=== PATIENT | male | born 1940 | race Caucasian/White ===

== ENCOUNTER 2023-04-19 09:27 | Inpatient (IN) | payer OTHER ==
[~2023-04-19] VITALS: Ht 172.7 cm; Wt 80.3 kg
[2023-04-19] MEDS ORDERED: TRAZODONE HCL100 MG PO (09:51)
[2023-04-19] MEDS ORDERED: BUMETANIDE0.5 MG PO (09:53)
[2023-04-19] MEDS ORDERED: MYRBETRIQ50 MG PO (09:54)
[2023-04-19] MEDS ORDERED: ARICEPT10 MG PO (09:54)
[2023-04-19] MEDS ORDERED: FINASTERIDE5 MG PO (09:55)
[2023-04-19] MEDS ORDERED: SEROQUEL25 MG PO (09:56)
[2023-04-19] MEDS ORDERED: DULCOLAX STOOL100 M1 PO (09:57)
[2023-04-19 10:07] LABS: BASOPHILS 0.3 % (0-2); HEMATOCRIT 35.6 % (35.0-50.0); HEMOGLOBIN 12.2 g/dL (12.0-18.0); MCH 32.2 (27-36); MCHC 34.2 g/dl (30-36); MCV 94.2 fl (81-99); NEUTROPHILS 90.7 % (39-80); PLATELET COUNT 312 K/uL (140-440); RBC 3.78 M/ul (4.3-5.7); RDW 13.2 (10.5-15.0)
[2023-04-19 10:28] LABS: LACTIC ACID, BLOOD 1.5 mmol/L (0.4-2.0)
[2023-04-19 10:31] LABS: ALBUMIN 2.7 g/dL (3.4-5.0); ALBUMIN/GLOBULIN RATIO 0.63 (1.1-2.4); ANION GAP 14.8 (7-21); BILIRUBIN, TOTAL 0.7 ng/dL (0.2-1.0); BUN/CREATININE RATIO 12.5 (6.0-28.6); CALCIUM 8.6 mg/dL (8.5-10.1); CREATININE, SERUM 1.04 mg/dL (0.70-1.30); POTASSIUM 3.8 mmol/L (3.5-5.1)
[2023-04-19 10:35] LABS: INFLUENZA B NAA NEGATIVE (NEGATIVE); RESPIRATORY SYNCYTIAL VIR NAA NEGATIVE (NEGATIVE)
[2023-04-19 10:58] LABS: BASE EXCESS, BLOOD GAS 2.2 mmol/L (-2-2); HCO3, BLOOD GAS 25.9 mmol/L (22-26); O2 SATURATION, BLOOD GAS 97.9 % (95.0-100.0); OXYGEN RECEIVED, BLOOD GAS 8L; PCO2, BLOOD GAS 37.1 mmHg (35-45); PH, BLOOD GAS 7.45 (7.35-7.45); PO2, BLOOD GAS 83 mmHg (80-100)
[2023-04-19 12:36] LABS: BILIRUBIN, URINE NEGATIVE (negative); BLOOD/HGB, URINE SMALL (Negative); KETONE, URINE NEGATIVE (Negative); LEUK ESTERASE, URINE NEGATIVE (negative); NITRITE, URINE NEGATIVE (negative)
[2023-04-19 12:46] LABS: BACTERIA, URINE 1+ /hpf (negative); CRYSTALS, URINE NONE SEEN (0-1+); EPITHELIAL CELLS, URINE SQUAMOUS 1+ /lpf (0-1+); WHITE BLOOD CELLS, URINE 0-1 /HPF (0-5)
[2023-04-19 12:47] LABS: COLLECTION TYPE, URINE VOID; REFLEX CULTURE, URINE No (No)
[2023-04-19 13:48] VITALS: BP 127/53
--- NOTE | 2023-04-19 15:14 | NUR ---
REVIEWED PATIENT'S HOME MEDICATIONS WITH PATIENT'S FAMILY, TO THEIR SATISFACTION. PATIENT IS ON 3L VIA NC. 1300 IV LASIX HELD, PER DR. MORALES. IV KCL IS INFUSING FOR 4 HOURS. WARM BLANKETS PROVIDED.
[2023-04-19] MEDS ORDERED: VITAMIN D325 MC2 PO (16:10)
[2023-04-19] MEDS ORDERED: METAMUCIL POWD575 GM PO (16:13)
--- NOTE | 2023-04-19 16:14 | NUR ---
MED REC COMPLETE
--- NOTE | 2023-04-19 18:03 | NUR ---
PT SITTING UP IN BED IS NOT CURRENTLY EATING DINNER, BUT DOES NOT WANT HIS TRAY REMOVED FROM HIS ROOM. FAMILY IS AT BEDSIDE. NO C/O'S AT THIS TIME.
[2023-04-19 18:30] VITALS: BP 156/78
--- NOTE | 2023-04-19 19:00 | NUR ---
BEDSIDE REPORT RECEIVED FROM OFFGOING RNTANYA. PT RESTING IN BED WITH FAMILY AT BEDSIDE. NEEDS DENIED AT THIS TIME.
--- NOTE | 2023-04-19 20:15 | NUR ---
FOOD PRODUCTION MACHINE OPERATOR TO ROOM FOR IV PUMP ALARMING. PT REPORTS HAVING PASSED STOOL. ATTENDS CHECKED, CHANGED FOR URINE. NO BM PRESENT. PT REPOSITIONED IN BED. WARM BLANKET PROVIDED. FAMILY REMAINS AT BEDSIDE. FURTHER NEEDS DENIED AT THIS TIME. CALL LIGHT IN REACH.
[2023-04-19 21:08] VITALS: BP 126/55
--- NOTE | 2023-04-19 21:10 | NUR ---
PT ASSESSMENT COMPLETE. PT RESTING IN BED WITH FAMILY AT BEDSIDE. PT ORIENTED TO SELF ONLY. VERY HARD OF HEARING. PT'S GRANDAUGREGGTER STATES THAT SHE PLACED R HEARING AID BACK IN PT'S EAR TO HELP HIM HEAR STAFF A LITTLE BETTER. SHE STATES THAT PT HAS A HARD TIME HEARING EVEN WITH HEARING AIDS IN. NO NONVERBAL S/SX OF PAIN PRESENT. PT STATES THAT CRAMPS TO LEGS AND FEET HAVE MOSTLY RESOLVED BUT THAT NOW HIS FEET ARE SORE. PT DENIES INTERVENTION FOR SORE FEET AT THIS TIME. LUNG SOUNDS CLEAR IN BILATERAL UPPER LOBES, RHONCI TO BILATERAL LOWER LOBES, CLEAR WITH COUGH. PT DENIES SPUTUM PRODUCTION. SAO2 93% ON RA. ATTENDS CHANGED AND PT REPOSITIONED AT THIS TIME. IV FLUSHED WITH 10 ML NS. WNL. PATENT. SL. PT AND FAROOQ DENY NEEDS AT THIS TIME. CALL LIGHT IN REACH.
--- NOTE | 2023-04-19 21:31 | EKG ---
[facility] [address] [facility] [facility] [place] [address] Signed Normal sinus rhythm Left anterior fascicular block Left ventricular hypertrophy with QRS widening ( R in aVL , Elyria product ) Abnormal ECG No previous ECGs available Confirmed by BRODY MORALES MD ([id number]) on 04/19/2023 9:31:15 PM Electronically Signed By: BRODY MORALES 04/19/232130 PATIENT NAME: RODRIGUEZNIA Electrocardiogram DATE OF : 42 PHYSICIAN: BRODY MORALES REPORT #: [id number] REPORT IS CONFIDENTIAL AND NOT TO BE RELEASED WITHOUT AUTHORIZATION
--- NOTE | 2023-04-19 22:33 | NUR ---
PT ROUNDING. PT RESTING IN BED WITH EYES CLOSED. PT'S FAMILY APPEARS TO BE IN BATHROOM WHEN CALENDER MACHINE OPERATOR HELPER AT DOORWAY. CALL LIGHT IN REACH.
--- NOTE | 2023-04-20 00:45 | NUR ---
PT ROUNDING. ATTENDS CHANGED AND PT REPOSITIONED. PT AND GRANDDAUGHTER DENY NEEDS. CALL LIGHT IN REACH.
[2023-04-20 02:13] VITALS: BP 131/67
--- NOTE | 2023-04-20 02:28 | NUR ---
PT ASSESSMENT COMPLETE. PT DENIES PAIN, NAUSEA, OR SOB. PT ORIENTED TO SELF ONLY. LUNG SOUNDS WITH RHONCI THROUGHOUT. PT WITH FREQUENT MOIST COUGH DURING ASSESSMENT. DENIES SPUTUM PRODUCTION. RHONCI DO NOT CLEAR WITH COUGH. SA02 91% ON RA. TELE # [address] HR 90'S. ATTENDS CHANGED AND PT REPOSITIONED. TOLERATED WELL. PT AND HIS FAMILY DENY FURTHER NEEDS AT THIS TIME. CALL LIGHT IN REACH.
--- NOTE | 2023-04-20 03:34 | NUR ---
PT ROUNDING. PT RESTING IN BED WITH EYES CLOSED. RESPIRATIONS EVEN AND UNLABORED. PT'S FAMILY RESTING AT BEDSIDE. CALL LIGHT IN REACH.
[2023-04-20 05:26] VITALS: BP 121/78
[2023-04-20 05:41] LABS: BASOPHILS 0.4 % (0-2); EOSINOPHILS 0.5 % (0-6); HEMATOCRIT 34.9 % (35.0-50.0); HEMOGLOBIN 11.7 g/dL (12.0-18.0); LYMPHOCYTES 9.3 % (24-44); MCH 31.7 (27-36); MCHC 33.6 g/dl (30-36); MCV 94.2 fl (81-99); MONOCYTES 8.5 % (0-12); NEUTROPHILS 81.3 % (39-80); PLATELET COUNT 341 K/uL (140-440); RBC 3.71 M/ul (4.3-5.7); RDW 13.4 (10.5-15.0)
--- NOTE | 2023-04-20 05:41 | NUR ---
PT ROUNDING. PT AWAKE AFTER LAB DRAW. VS OBTAINED, WNL. PT ATTENDS CHANGED. PT STANDS WITH SBA TO SCALE. TOLERATED WELL. PT ASSISTED BACK TO BED. SNACK PROVIDED. PT'S FAMILY REMAINS AT BEDSIDE. NEEDS DENIED AT THIS TIME. CALL LIGHT IN REACH.
[2023-04-20 05:56] LABS: ANION GAP 10.9 (7-21); BUN/CREATININE RATIO 11.11 (6.0-28.6); CALCIUM 8.3 mg/dL (8.5-10.1); CREATININE, SERUM 0.99 mg/dL (0.70-1.30); POTASSIUM 2.9 mmol/L (3.5-5.1)
--- NOTE | 2023-04-20 07:21 | NUR ---
RECIEVED REPORT FROM NURSE. PT IS CURRENTLY RESTING. NO OTHER CARES ARE NEEDED AT THIS TIME. CALL LIGHT WITHIN REACH
--- NOTE | 2023-04-20 09:01 | NUR ---
STARTED IV AB. IV WNL, FLUSHED WELL. PT ATE MOST OF BREAKFAST AND WAS ASKING ABOUT SHAVING. GAVE RAZOR TO GRANDTR
[2023-04-20 10:44] VITALS: BP 127/70
--- NOTE | 2023-04-20 10:45 | NUR ---
PT IS CURRENTLY LAYING BACK IN HIS CHAIR. PT RECIEVED LASIX AND NEEDED PERICARE AND CHANGE OF DEPENDS. PT COUGH WHEN DEEP BREATHING HAS LOTS OF CONGESTION HEARD. PT IS SOMETIMES CONFUSED AND REP[EATS HIMSELF CONSTANTLY. ASSESSMENT DONE LUNG SOUNDS RHONCI. NO OTHER CARES ARE NEEDED OR REQUESTED AT THIS TIME
--- NOTE | 2023-04-20 13:04 | NUR ---
PT WAS COMPLAINING OF HEART BURN AND WANTED SOME MEDICATION FOR IT. I LOOKED ON THE EMAR AND DIDNT SEE ANY ORDERS FOR HEARTBURN SO I STARTED A NURE INITIATED ORDER AND GAVE PT SOME MAALOX. PT IS CURRENTLY SITTING UP IN HIS CHAIR AND EATING WITH FAMILY IN THE ROOM. NO OTHER CARES ARE NEEDED OR REQUESTED AT THIS TIME.
--- NOTE | 2023-04-20 13:47 | NUR ---
PT A CANTANCEROUS. STATED REPEATEDLY HE WANTED TO GO HOME. STEP-DAUGHTER AMBROSE IN ROOM. REMINDED PT OF STEPS REQUIRED FOR DISCHARGE. PT CONSENTED TO PRAYER. PRAYED FOR PATIENCE AND PERSEVERENCE.
--- NOTE | 2023-04-20 14:10 | NUR ---
SPOKE TO PATIENT AND DAUGHTER ABOU THE DC PLAN. PATIENT LIVES WTHT THIS DAUGHTER. PATIENT DOES NOT USE DME OR DRIVE. PATIENT CAN AFFORD HOUSING AND FOOD. PATIENT CAN DO HIS OWN ADLS. PATIENT PLANS TO GO HOME AND LIVE WITH DAUGHTER. PATIENT HAS FAMILY AND FRIENDS THAT CAN HELP NEEDED.
[2023-04-20 14:31] VITALS: BP 115/76
--- NOTE | 2023-04-20 15:32 | NUR ---
PT IS CURRENTLY SITTING IN ROOM GETTING A NEB TREATMENT FROM RESPIRATORY THERAPIST. NBO OTHER CARES ARE NEEDED OR REQUESTED AT THIS TIME. CALL LIGHT WITHIN REACH
--- NOTE | 2023-04-20 18:03 | NUR ---
PATIENT GIVEN MAALOX FOR UPSET STOMACH.
[2023-04-20 18:50] VITALS: BP 129/67
--- NOTE | 2023-04-20 19:05 | NUR ---
REPORT RECEIVED FROM OFFGOING RNS ALLIE.
[2023-04-20 20:13] VITALS: BP 129/79
--- NOTE | 2023-04-20 20:51 | NUR ---
PT ASSESSMENT COMPLETE. PT RESTING IN BED. PT'S DAUGHTER REPORTS THAT SHE JUST ASSISTED PT TO BED. PT STATES TAHT PAIN AND NAUSEA ARE WELL CONTROLLED AT THIS TIME. PT STATES THAT HE HAS BEEN COUGHING. DRY COUGH NOTED THROUGHOUT ASSESSMENT. PT DENIES SPUTUM PRODUCTION. LUNG SOUNDS COARSE THROUHGOUT. SA02 IN 90'S ON RA. PT ORIENTED TO SELF ONLY. IV FLUSHED WITH 10 ML NS, WNL, SL. ATTENDS DRY AT THIS TIME. PT AND DAUGHTER DENY FURTHER NEEDS AT THIS TIME. CALL LIGHT IN REACH.
--- NOTE | 2023-04-20 23:30 | NUR ---
PT ROUNDING. PT RESTING IN WITH EYES CLOSED. RESPIRATIONS EVEN AND UNLABORED. PT APPEARS TO BE SLEEPING. CALL LIGHT IN REACH. FAMILY AWAKE ON COUCH IN ROOM.
--- NOTE | 2023-04-21 01:29 | NUR ---
PT ASSESSMENT COMPLETE. PT RESTING IN BED WITH EYES CLOSED. APPEARS TO BE SLEEPING, WAKES EASILY TO TOUCH. PT REMAINS ORIENTED TO SELF ONLY. PT WITH FREQUENT DRY COUGH PRESENT DURING ASSESSMENT. CUNGS SOUNDS COARSE TO R LUNG DURAN, RAVEN. CRACKLES ASCULTATED IN LLL. PT DENIES SOB. PT DENIES PAIN OR NAUSEA. ATTENDS CHANGED, PT REPOSITIONED. FAMILY REMAINS ASLEEP ON COUCH. CALL LIGHT IN REACH.
--- NOTE | 2023-04-21 02:08 | NUR ---
PT'S GRANDDAUGHTER UTILIZES CALL LIGHT, REQUESTS ASSISTANCE WITH BED. APPELLATE LAW CLERK TO ROOM. PT SITTING UP IN RECLINER. PT'S GRANDAUGHTER REPORTS THAT PT WAS ABLE TO GET UP OUT OF BED BEFORE SHE REALIZED. PT ASSISTED BACK TO BED. BED ALARM ACTIVATED. PT AND FAMILY DENY FURHTER NEEDS AT THIS TIME .CALL LIGHT IN REACH.
--- NOTE | 2023-04-21 03:00 | NUR ---
PT ROUNDING. PT RESTING IN BED WITH EYES CLOSED. RESPIRATIONS EVEN AND UNLABORED. PT APPEARS TO BE SLEEPING. DOES NOT WAKE WHILE METAL NEUTRALIZER AT DOORWAY. FAMILY SLEEPING ON COUCH. CALL LIGHT IN REACH.
[2023-04-21 05:34] LABS: BASOPHILS 0.6 % (0-2); EOSINOPHILS 1.2 % (0-6); HEMATOCRIT 34.1 % (35.0-50.0); HEMOGLOBIN 11.5 g/dL (12.0-18.0); LYMPHOCYTES 8.9 % (24-44); MCH 31.7 (27-36); MCHC 33.6 g/dl (30-36); MCV 94.3 fl (81-99); MONOCYTES 8.4 % (0-12); NEUTROPHILS 80.9 % (39-80); PLATELET COUNT 374 K/uL (140-440); RBC 3.62 M/ul (4.3-5.7); RDW 13.6 (10.5-15.0)
[2023-04-21 05:41] VITALS: BP 104/55
--- NOTE | 2023-04-21 05:42 | NUR ---
CERAMICS ARTIST TO ROOM FOR AM VITALS. PT RESTING WITH EYES CLOSED. WAKES EASILY. PT WITH COUGH, COPIOUS SPUTUM PRODUCTION. SPUTUM WHITE AND THICK. PT UP TO BATHROOM TO USE THE URINAL. SA02 NOTED TO BE 82% AFTER AMBULATION. PT BACK TO BED. SAO2 84-86 AT REST. O2 @ 3 LPM VIA OXYMASK TO MAINTAIN SATURATIONS OF 91-92%. PT'S FAMILY PROVIDED WITH EDUCATION. PT AND FAMILY DENY NEEDS AT THIS TIME. CALL LIGHT IN REACH.
[2023-04-21 05:53] LABS: ALBUMIN 2.3 g/dL (3.4-5.0); ALBUMIN/GLOBULIN RATIO 0.61 (1.1-2.4); ANION GAP 9.6 (7-21); BILIRUBIN, TOTAL 0.4 ng/dL (0.2-1.0); BUN/CREATININE RATIO 17.94 (6.0-28.6); CALCIUM 8.4 mg/dL (8.5-10.1); CREATININE, SERUM 1.17 mg/dL (0.70-1.30); POTASSIUM 3.6 mmol/L (3.5-5.1); PROTEIN, TOTAL 6.1 g/dL (6.4-8.2)
--- NOTE | 2023-04-21 07:02 | NUR ---
PT REPORT RECEIVED FROM ASHU CHAMBERS. PT AND PT'S DAUGHTER ASLEEP IN ROOM.
[2023-04-21 09:48] VITALS: BP 107/58
--- NOTE | 2023-04-21 10:39 | NUR ---
PT IN GOOD SPIRITS. IN NEED OF BED AND GOWN CHANGE. INFORMATED ASHU DE LA CRUZ AND CARLENE NAVARRO. PRAYED FOR HOAHAOISM AND HEALING OF BODY AND SPIRIT.
--- NOTE | 2023-04-21 11:17 | NUR ---
ASSISTED PT TO AMBULATE HALLWAY X1 LAP (SBA ONLY). PT TOLERATED AMBULATION WELL, NO DIFFICULTIES, NO BALANCE ISSUES. PT TO BATHROOM TO VOID. PT BACK TO BED, ADJUSTED BED TO POSITION OF COMFORT AND INSTRUCTED PT OPHTHALMIC PATHOLOGIST LIGHT USE. DAUGHTER AT BEDSIDE.
[2023-04-21] MEDS ORDERED: SEROQUEL50 MG PO (12:41)
[2023-04-21] MEDS ORDERED: BUMETANIDE1 MG PO (12:43)
--- NOTE | 2023-04-22 16:40 | NUR ---
Heart failure post DC follow up call. Spoke at length to caregiver Shaheen. Family will be purchasing scale for daily weights. Heart failure educatin packet did go homw with patient. Hidden salt and low sodium diet reviewed. Patient normally will eat what he is given but since hospitalization is expecting more sweets. His usual breakfast is oatmeal with fruits. Family cooks with little salt. Follow up visit with PCP is scheduled for next week. Shaheen is concerned patient's behavior has regressed -increased baby talk and talking to the TV. Advised her to consult with PCP about these changes. Family welcomed to call this service with heart failure home management questions.
== END 2023-04-21 14:25 | disposition home or self-care (01) | DRG 291 ==
LOC: ED 09:27 → MS 12:28
PROVIDERS: Emergency Medicine; ADMIT Internal Medicine; ATTEND Internal Medicine
PROC: 4A033R1 Measurement of Arterial Saturation, Peripheral, Percutaneous Approach (ICD-10-PCS; principal; 2023-04-19)
DX: I11.0 Hypertensive heart disease with heart failure (principal); I50.33 Acute on chronic diastolic (congestive) heart failure; N40.0 Benign prostatic hyperplasia without lower urinary tract symptoms; F03.90 Unspecified dementia, unspecified severity, without behavioral disturbance, psychotic disturbance, mood disturbance, and anxiety; R09.02 Hypoxemia; R63.5 Abnormal weight gain; Z20.822 Contact with and (suspected) exposure to COVID-19; Z79.899 Other long term (current) drug therapy; Z68.28 Body mass index [BMI] 28.0-28.9, adult
CPT/HCPCS: 36415; 36600; 71045; 71260; 80048; 80053; 81001; 82803; 83605; 83735; 83880; 84484; 85025; 85379; 87502; 93005; 93010; 93306; 94644; 94760; 97161; 97165; A9270; C9803; J0696; J1940; J2405; J3480; J3490; J7060; Q9967; U0002

== ENCOUNTER 2023-05-06 11:11 | Emergency (ER) | payer MEDICARE, OTHER ==
[~2023-05-06] VITALS: Ht 172.7 cm; Wt 80.0 kg
[~2023-05-06 11:11] MED LIST: ARICEPT10 MG PO; BUMETANIDE0.5 MG PO; BUMETANIDE1 MG PO; DULCOLAX STOOL100 M1 PO; FINASTERIDE5 MG PO; METAMUCIL POWD575 GM PO; MYRBETRIQ50 MG PO; SEROQUEL25 MG PO; SEROQUEL50 MG PO; TRAZODONE HCL100 MG PO; VITAMIN D325 MC2 PO
--- OUTSIDE RECORDS SUMMARY | 2023-05-06 11:16 | XMS ---
PreManage Notification: NIA RODRIGUEZ Security [employer] Events No recent Security Events currently on file CRITERIA MET - [facility] - 2 Visits in 30 Days CARE PROVIDERS There are no care providers on record at this time. Aramis has no Care Guidelines for this patient. [facility] (12 MO.) [facility] NOTE: Visits indicate total known visits. ED/UCC VISIT TRACKING (12 MO.) [facility] COMPLAINT: - POSS UTI 04/19/2023 09:29 [facility] TYPE: Emergency COMPLAINT: - DIFFICULTY BREATHING, ALTERED INPATIENT VISIT TRACKING (12 MO.) 04/19/2023 12:28 [facility] TYPE: Medical Surgical COMPLAINT: - CHF DIAGNOSES: - Abnormal weight gain - Abnormal weight gain - Acute diastolic (congestive) heart failure - Acute on chronic diastolic (congestive) heart failure - Acute on chronic diastolic (congestive) heart failure - Benign prostatic hyperplasia without lower urinary tract symptoms - Benign prostatic hyperplasia without lower urinary tract symptoms - Body mass index [BMI] 28.0-28.9, adult - Body mass index [BMI] 28.0-28.9, adult - Contact with and (suspected) exposure to COVID-19 - Contact with and (suspected) exposure to COVID-19 - Hypertensive heart disease with heart failure - Hypertensive heart disease with heart failure - Hypoxemia - Hypoxemia - Other half-way (current) drug therapy - Other half-way (current) drug therapy - Unspecified dementia, unspecified severity, without behavioral disturbance, psychotic disturbance, mood disturbance, and anxiety - Unspecified dementia, unspecified severity, without behavioral disturbance, psychotic disturbance, mood disturbance, and anxiety [email or web address]
[2023-05-06 11:40] LABS: BILIRUBIN, URINE NEGATIVE (negative); BLOOD/HGB, URINE NEGATIVE (Negative); KETONE, URINE TRACE (Negative); LEUK ESTERASE, URINE NEGATIVE (negative); NITRITE, URINE NEGATIVE (negative); PH, URINE 5.5 (5-7)
[2023-05-06 11:50] LABS: CASTS, URINE HYALINE 1+ \\lpf; EPITHELIAL CELLS, URINE SQUAMOUS 1+ /lpf (0-1+); REFLEX CULTURE, URINE No (No)
[2023-05-06 12:23] LABS: HEMATOCRIT 38.2 % (35.0-50.0); HEMOGLOBIN 12.9 g/dL (12.0-18.0); LYMPHOCYTES 16.5 % (24-44); MCHC 33.7 g/dl (30-36); MCV 95.1 fl (81-99); MONOCYTES 7.3 % (0-12); NEUTROPHILS 73.2 % (39-80); PLATELET COUNT 491 K/uL (140-440); RBC 4.02 M/ul (4.3-5.7); RDW 14.3 (10.5-15.0)
[2023-05-06 12:36] LABS: ALBUMIN 3.3 g/dL (3.4-5.0); ALBUMIN/GLOBULIN RATIO 0.87 (1.1-2.4); ANION GAP 8.1 (7-21); BILIRUBIN, TOTAL 0.6 ng/dL (0.2-1.0); BUN/CREATININE RATIO 9.83 (6.0-28.6); CALCIUM 8.9 mg/dL (8.5-10.1); CREATININE, SERUM 1.22 mg/dL (0.70-1.30); POTASSIUM 4.1 mmol/L (3.5-5.1); PROTEIN, TOTAL 7.1 g/dL (6.4-8.2)
[2023-05-06 13:14] VITALS: BP 150/83
== END 2023-05-06 13:08 | disposition home or self-care (01) ==
LOC: ED 11:11
PROVIDERS: Emergency Medicine
DX: N40.1 Benign prostatic hyperplasia with lower urinary tract symptoms (principal); N39.498 Other specified urinary incontinence; F03.90 Unspecified dementia, unspecified severity, without behavioral disturbance, psychotic disturbance, mood disturbance, and anxiety; I50.9 Heart failure, unspecified; Z79.899 Other long term (current) drug therapy
CPT/HCPCS: 36415; 80053; 81001; 85025; 99283